=== PATIENT | female | born 1995 | race Caucasian/White ===

== ENCOUNTER 2018-02-01 20:29 | Emergency (ER) | payer SELFPAY | END 2018-02-02 01:38 | disposition left against medical advice (07) | LOC: ER 02-02 01:33 | DX: Z53.21 Procedure and treatment not carried out due to patient leaving prior to being seen by health care provider (principal) ==

== ENCOUNTER 2018-02-02 09:18 | Emergency (ER) | payer MEDICAID ==
[~2018-02-02] VITALS: Ht 160 cm; Wt 76.0 kg
[2018-02-02] MEDS ORDERED: IBUPROFEN 600MG TABLET PO ONE (10:45)
[2018-02-02 12:47] VITALS: BP 124/67
== END 2018-02-02 12:48 | disposition home or self-care (01) ==
LOC: ER 09:18
DX: R07.9 Chest pain, unspecified (principal)
CPT/HCPCS: 71045; 93005; 99284

== ENCOUNTER 2021-04-07 19:49 | Emergency (ER) | payer MEDICAID ==
[~2021-04-07] VITALS: Ht 160 cm; Wt 78.0 kg
[2021-04-07 19:58] VITALS: BP 128/84
== END 2021-04-08 01:06 | disposition left against medical advice (07) ==
LOC: ER 19:49
DX: R07.9 Chest pain, unspecified (principal); Z53.21 Procedure and treatment not carried out due to patient leaving prior to being seen by health care provider
CPT/HCPCS: 93005